=== PATIENT | male | born 1965 | race Caucasian/White ===

== ENCOUNTER 2018-01-04 10:38 | Emergency (ER) | payer BC ==
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
--- NOTE | 2018-01-04 11:36 | RAD ---
INDICATION: Neck injury one week ago. Neck pain COMPARISON: None TECHNIQUE: Noncontrast axial source images was performed from the skull base to the thoracic inlet. Coronal and and sagittal reformatted images were generated. FINDINGS: Vertebrae: There is no fracture or acute focal bony lesion. There are arthritic changes with vertebral spurring from C3 through C6 with posterior spondylitic ridge formation. There is an plate sclerosis. There is prominent uncinate process hypertrophy the into moderate, multilevel bilateral foraminal narrowing right greater than left Alignment: The craniocervical junction appears normal. The cervical vertebrae are normally aligned. Central Canal: Posterior spondylitic ridge formation and uncinate process spurring. There is multilevel foraminal narrowing. There is no significant decrease in the AP diameter of the canal. MR imaging is a more sensitive method to evaluate the canal and foramina. Intervertebral disc spaces: The disc spaces are maintained. Brain: The visualized brain appears unremarkable. Soft tissues: The visualized soft tissue elements of the neck are unremarkable. The prevertebral soft tissues appear normal. The lung apices are clear. IMPRESSION: MODERATE TO ADVANCED MULTILEVEL DEGENERATIVE DISC DISEASE. NO ACUTE FINDINGS
--- NOTE | 2018-01-04 11:58 | RAD ---
INDICATION: Right shoulder pain COMPARISON: None TECHNIQUE: AP, lateral, and oblique views were obtained. FINDINGS: There is no acute bony change. There is minor a.c. and glenohumeral joint osteoarthritis. The soft tissues are intact.. IMPRESSION: MINOR OSTEOARTHRITIS. NO ACUTE FINDINGS.
[2018-01-04 12:43] VITALS: BP 135/98
== END 2018-01-04 12:42 | disposition home or self-care (01) ==
LOC: ED 10:38
DX: S13.9XXA Sprain of joints and ligaments of unspecified parts of neck, initial encounter (principal); V43.62XA Car passenger injured in collision with other type car in traffic accident, initial encounter; Y93.89 Activity, other specified; Y92.410 Unspecified street and highway as the place of occurrence of the external cause; F17.200 Nicotine dependence, unspecified, uncomplicated
CPT/HCPCS: 70450; 72125; 99282